=== PATIENT | female | born 1995 | race Hispanic/Latino ===

== ENCOUNTER 2018-11-13 19:13 | Emergency (ER) | payer OTHER ==
[2018-11-13 20:41] LABS: Absolute Lymphocytes (CBC) 4.4 K/uL (0.7-4.9); Absolute Monocytes 0.5 K/uL (0.1-1.3); Absolute Neutrophil 10.5 K/uL (1.8-8.0); Basophils % 0.6 % (0-1.3); Eosinophils % 1.5 % (0-4.4); Hematocrit 40.4 % (36.0-45.0); Lymphocytes % 27.9 % (15.3-44.8); MPV 8.5 fL (7.6-11.3); Monocytes % 3.3 % (3.3-12.3); RBC Red Blood Cell Count 5.16 M/uL (3.86-4.86)
--- NOTE | 2018-11-13 21:33 | EDPHYS ---
Physician Documentation [facility] Name: Joanie Schwartz Age: 23 yrs Sex: Female : 1995 Arrival Date: 11/13/2018 Time: 19:13 Bed 17 Private MD: ED Physician Juan Thomas HPI: 11/13 21:51 This 23 yrs old Female presents to ER via Ambulatory with complaints of gs Vaginal Bleeding. 21:51 Onset: The symptoms/episode began/occurred 6 month(s) ago, and became persistent. gs Modifying factors: The symptoms are alleviated by nothing, the symptoms are aggravated by nothing. Associated signs and symptoms: Pertinent negatives: cramping, fever. Severity of symptoms: At their worst the symptoms were moderate, in the emergency department the symptoms are unchanged. The patient has experienced similar episodes in the past, several times. The patient has not recently seen a physician. 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 - Social history:: Smoking status: Patient/guardian denies using tobacco. - Ebola Screening: : Patient negative for fever greater than or equal to 101.5 degrees Fahrenheit, and additional compatible Ebola Virus Disease symptoms. ROS: 21:51 All other systems are negative. gs Exam: 21:51 Head/Face: Normocephalic, atraumatic. Eyes: Pupils equal round and reactive to light, gs extra-ocular motions intact. Lids and lashes normal. Conjunctiva and sclera are non-icteric and not injected. Cornea within normal limits. Periorbital areas with no swelling, redness, or edema. ENT: Nares patent. No nasal discharge, no septal abnormalities noted. Tympanic membranes are normal and external auditory canals are clear. Oropharynx with no redness, swelling, or masses, exudates, or evidence of obstruction, uvula midline. Mucous membranes moist. Neck: Trachea midline, no thyromegaly or masses palpated, and no cervical lymphadenopathy. Supple, full range of motion without nuchal rigidity, or vertebral point tenderness. No Meningismus. Chest/axilla: Normal chest wall appearance and motion. Nontender with no deformity. No lesions are appreciated. Cardiovascular: Regular rate and rhythm with a normal S1 and S2. No gallops, murmurs, or rubs. Normal PMI, no JVD. No pulse deficits. Respiratory: Lungs have equal breath sounds bilaterally, clear to auscultation and percussion. No rales, rhonchi or wheezes noted. No increased work of breathing, no retractions or nasal flaring. Abdomen/GI: Soft, non-tender, with normal bowel sounds. No distension or tympany. No guarding or rebound. No evidence of tenderness throughout. Back: No spinal tenderness. No costovertebral tenderness. Full range of motion. Skin: Warm, dry with normal turgor. Normal color with no rashes, no lesions, and no evidence of cellulitis. MS/ Extremity: Pulses equal, no cyanosis. Neurovascular intact. Full, normal range of motion. Neuro: Awake and alert, GCS 15, oriented to person, place, time, and situation. Cranial nerves II-XII grossly intact. Motor strength 5/5 in all extremities. Sensory grossly intact. Cerebellar exam normal. Normal gait. 21:51 Constitutional: The patient appears alert, awake. Vital Signs: 19:23 BP 134 / 93; Pulse 81; Resp 16 S; Temp 97.5(TE); Pulse Ox 97% on R/A; Weight 89.81 kg jd3 (R); Height 5 ft. 3 in. (160.02 cm) (R); Pain 5/10; 21:57 BP 127 / 81; Pulse 76; Resp 17; Temp 97.2(O); Pulse Ox 99% on R/A; Pain 4/10; ed1 19:23 Body Mass Index 35.07 (89.81 kg, 160.02 cm) jd3 MDM: 19:40 Patient medically screened. gs 21:51 Differential diagnosis: dysmenorrhea, nonspecific abdominal pain. Data reviewed: vital gs signs, nurses notes. Counseling: I had a detailed discussion with the patient and/or guardian regarding: the historical points, exam findings, and any diagnostic results supporting the discharge/admit diagnosis, the presence of at least one elevated blood pressure reading (>120/80) during this emergency department visit, lab results, the need for outpatient follow up, an OB/Gyne specialist. Response to treatment: the patient's symptoms have mildly improved after treatment, and as a result, I will discharge patient. Special discussion: I have referred the patient to see his PCP for further evaluation of high blood pressure. 11/13 19:53 Order name: Urine Dipstick--Ancillary (enter results) [facility] 11/13 19:53 Order name: Urine --Ancillary (enter results) [facility] 11/13 19:53 Order name: Urine Dipstick-Ancillary [facility] 11/13 19:53 Order name: Urine --Ancillary [facility] 11/13 20:01 Order name: CBC with Diff; Complete Time: 21:29 Administered Medications: No medications were administered Disposition: 11/13/18 21:31 Discharged to Home. Impression: Other abnormal uterine and vaginal bleeding. - Condition is Stable. - Discharge Instructions: Dysfunctional Uterine Bleeding, Managing Your Hypertension. - Prescriptions for Provera 10 mg Oral tablet - take 1 tablet by ORAL route once daily; 5 tablet. - Medication Reconciliation Form, Thank You Letter, Antibiotic Education, Prescription Opioid Use form. - Follow up: Private Physician; When: 2 - 3 days; Reason: Re-evaluation by your physician. Signatures: Dispatcher [employer] Violeta Boateng RN RN ed1 Juan Thomas MD MD Ashvin Herrera RN RN jd3 Corrections: (The following items were deleted from the chart) 21:59 21:31 11/13/2018 21:31 Discharged to Home. Impression: Other abnormal uterine and ed1 vaginal bleeding. Condition is Stable. Forms are Medication Reconciliation Form, Thank You Letter, Antibiotic Education, Prescription Opioid Use. Follow up: Private Physician; When: 2 - 3 days; Reason: Re-evaluation by your physician. gs
--- NOTE | 2018-11-13 21:33 | ER ---
Nurse's Notes [facility] Name: Joanie Schwartz Age: 23 yrs Sex: Female : 1995 Arrival Date: 11/13/2018 Time: 19:13 Bed 17 Private MD: Diagnosis: Other abnormal uterine and vaginal bleeding Presentation: 11/13 19:21 Presenting complaint: Patient states: "I have had my period for about for about a month jd3 now. on average I am using 6 or so pads a day with passing clots.". Transition of care: patient was not received from another setting of care. Onset of symptoms was October 05, 2018. Risk Assessment: Do you want to hurt yourself or someone else? Patient reports no desire to harm self or others. Initial Sepsis Screen: Does the patient meet any 2 criteria? No. Patient's initial sepsis screen is negative. Does the patient have a suspected source of infection? No. Patient's initial sepsis screen is negative. Care prior to arrival: None. 19:21 Method Of Arrival: Ambulatory jd3 19:21 Acuity: CARMELITA 3 jd3 SERVICES REP: 19:23 LMP 10/05/2018 jd3 Historical: - Allergies: 19:23 No Known Allergies; jd3 - Home Meds: 19:23 None [Active]; jd3 - PMHx: 19:23 None; jd3 - PSHx: 19:23 ; bone marrow; jd3 - Immunization history:: Adult Immunizations up to date. - Social history:: Smoking status: Patient/guardian denies using tobacco. - Ebola Screening: : Patient negative for fever greater than or equal to 101.5 degrees Fahrenheit, and additional compatible Ebola Virus Disease symptoms. Screenin:52 Abuse screen: Denies threats or abuse. Denies injuries from another. Nutritional ed1 screening: No deficits noted. Tuberculosis screening: No symptoms or risk factors identified. Fall Risk None identified. Assessment: 19:52 General: Appears in no apparent distress. Behavior is calm, cooperative. Pain: ed1 Complains of pain in suprapubic area Pain does not radiate. Pain currently is 5 out of 10 on a pain scale. Quality of pain is described as crampy, Pain began over 1 month ago Is intermittent, lasting a few minutes. Neuro: Level of Consciousness is awake, alert, obeys commands, Oriented to person, place, time, situation. Cardiovascular: Denies chest pain, Heart tones S1 S2 present. Respiratory: Airway is patent Respiratory effort is even, unlabored, Respiratory pattern is regular, symmetrical, Breath sounds are clear bilaterally. Denies cough, shortness of breath. GI: Abdomen is non-distended, Bowel sounds present X 4 quads. Abd is soft and non tender X 4 quads. Patient currently denies diarrhea, nausea, vomiting. : Urine is cloudy, Reports vaginal bleeding that is with clots, moderate flow. EENT: No signs and/or symptoms were reported regarding the EENT system. Derm: Skin is intact, is healthy with good turgor, Skin is dry, Skin is normal, Skin temperature is warm. Musculoskeletal: Circulation, motion, and sensation intact. Range of motion: intact in all extremities. 21:57 Reassessment: Patient appears in no apparent distress at this time. Patient and/or ed1 family updated on plan of care and expected duration. Pain level reassessed. Patient is alert, oriented x 3, equal unlabored respirations, skin warm/dry/pink. Vital Signs: 19:23 BP 134 / 93; Pulse 81; Resp 16 S; Temp 97.5(TE); Pulse Ox 97% on R/A; Weight 89.81 kg jd3 (R); Height 5 ft. 3 in. (160.02 cm) (R); Pain 5/10; 21:57 BP 127 / 81; Pulse 76; Resp 17; Temp 97.2(O); Pulse Ox 99% on R/A; Pain 4/10; ed1 19:23 Body Mass Index 35.07 (89.81 kg, 160.02 cm) [facility] ED Course: 19:13 Patient arrived in ED. ds1 19:22 Triage completed. jd3 19:24 Arm band placed on. jd3 19:40 Juan Thomas MD is Attending Physician. 19:43 Violeta Bryant, FLAQUITA is Primary Nurse. ed1 19:52 Patient has correct armband on for positive identification. Bed in low position. Call ed1 light in reach. 19:52 Urine collected: clean catch specimen, blood tinged. ed1 19:54 Dr. Thomas at bedside. ed1 20:37 Initial lab(s) drawn, by me, sent to lab. ed1 21:04 Urine --Ancillary (enter results) Sent. ed1 21:04 Urine Dipstick--Ancillary (enter results) Sent. ed1 21:57 No provider procedures requiring assistance completed. Patient did not have IV access ed1 during this emergency room visit. Administered Medications: No medications were administered Outcome: 21:31 Discharge ordered by . 21:57 Discharged to home ambulatory. ed1 21:57 Condition: good 21:57 Discharge instructions given to patient, Instructed on discharge instructions, follow up and referral plans. medication usage, Demonstrated understanding of instructions, follow-up care, medications, Prescriptions given X 1. 21:59 Patient left the ED. ed1 Signatures: Rut Zepeda ds1 Violeta Bryant RN RN ed1 Juan Thomas MD MD gs Davies, Jonathon, RN RN jd3
[2018-11-13 22:35] LABS: Urine Blood 2+ (NEG); Urine Glucose NEGATIVE (NEG); Urine Protein 2+ (NEG); Urine Specific Gravity >1.030 (1.005-1.030); Urine pH 5.5 (5.0-7.0)
== END 2018-11-13 21:59 | disposition home or self-care (01) ==
LOC: ER 19:13
DX: N93.9 Abnormal uterine and vaginal bleeding, unspecified (principal)
CPT/HCPCS: 36415; 81003; 81025; 85025; 99283

== ENCOUNTER 2020-01-10 14:54 | Emergency (ER) | payer OTHER, SELFPAY ==
[2020-01-10 16:29] LABS: Absolute Lymphocytes (CBC) 3.1 K/uL (0.7-4.9); Basophils % 0.5 % (0-1.3); Hematocrit 35.5 % (36.0-45.0); Lymphocytes % 20.5 % (15.3-44.8); MPV 8.5 fL (7.6-11.3); RBC Red Blood Cell Count 5.12 M/uL (3.86-4.86)
--- NOTE | 2020-01-10 16:38 | RAD REPORT ---
EXAM DESCRIPTION: [place] Single View01/10/2020 4:29 pm CLINICAL HISTORY: Chest pain COMPARISON: none FINDINGS: The lungs appear clear of acute infiltrate. The heart is normal size IMPRESSION: No acute abnormalities displayed
[2020-01-10 16:49] LABS: ALT/SGPT 42 U/L (12-78); AST/SGOT 20 U/L (15-37); Albumin 3.5 g/dL (3.4-5.0); Alkaline Phosphatase 100 U/L (45-117); BUN Blood Urea Nitrogen 10 mg/dL (7-18); Bicarbonate 24 mmol/L (21-32); Bilirubin Direct < 0.1 mg/dL (0-0.2); Bilirubin Total 0.1 mg/dL (0.2-1.0); Glucose Level 148 mg/dL (74-106); Lipase 133 U/L (73-393); Magnesium 2.1 mg/dL (1.8-2.4); NT PRO-BNP 14 pg/mL (<125); Potassium 3.4 mmol/L (3.5-5.1); Protein, Total 7.6 g/dL (6.4-8.2); Sodium Level 141 mmol/L (136-145); Troponin (Emerg Dept Use Only) < 0.02 ng/mL (0.0-0.045)
[2020-01-10 17:02] LABS: Urine Blood 2+ (NEG); Urine Glucose NEGATIVE (NEG); Urine Protein TRACE (NEG)
--- NOTE | 2020-01-10 17:08 | ER ---
Nurse's Notes [facility] Name: Joanie Schwartz Age: 24 yrs Sex: Female : 1995 Arrival Date: 01/10/2020 Time: 14:58 Bed 17 Private MD: Diagnosis: Chest pain, unspecified;Hypokalemia;Elevated white blood cell count Presentation: 01/09 14:59 Chief complaint: Patient states: left sided chest pain since Mon. Last a few seconds sv each time. Risk Assessment: Do you want to hurt yourself or someone else? Patient reports no desire to harm self or others. Onset of symptoms was January 08, 2020. 14:59 Method Of Arrival: Ambulatory sv 14:59 Acuity: CARMELITA 3 sv 15:00 Coronavirus screen: Proceed with normal triage. Patient denies a cough. Patient denies sv shortness of breath or difficulty breathing. Patient denies measured and/or subjective temperature greater than 100.4F prior to today's visit. Patient denies travel on a cruise ship or to a country the [facility] currently lists as an affected area. Patient denies contact with known and/or suspected case of COVID-19. Ebola Screen: No symptoms or risks identified at this time. 15:02 Initial Sepsis Screen: Does the patient meet any 2 criteria? HR > 90 bpm. No. Patient's sv initial sepsis screen is negative. Does the patient have a suspected source of infection? No. Patient's initial sepsis screen is negative. Triage Assessment: 15:01 General: Appears in no apparent distress. comfortable, Behavior is cooperative, sv appropriate for age, anxious. Pain: Denies pain. Neuro: Level of Consciousness is awake, alert, obeys commands, Gait is steady. Respiratory: Respiratory effort is even, unlabored. Historical: - Allergies: 15:00 No Known Allergies; sv - PMHx: 15:00 None; sv - PSHx: 15:00 ; bone marrow bx; sv - Immunization history:: Adult Immunizations. - Social history:: Smoking status: Patient denies any tobacco usage or history of. Screenin:23 Abuse screen: Denies threats or abuse. Nutritional screening: No deficits noted. tw2 Tuberculosis screening: No symptoms or risk factors identified. Fall Risk None identified. Assessment: 15:30 General: Appears in no apparent distress. comfortable, Behavior is calm, cooperative, em appropriate for age, Denies fever. Pain: Complains of pain in anterior aspect of left upper chest Pain does not radiate. Pain began 2-3 days ago. Neuro: Level of Consciousness is awake, alert, obeys commands, Oriented to person, place, time, situation, Appropriate for age. Cardiovascular: Reports chest pain, Denies nausea, shortness of breath, Capillary refill < 3 seconds Patient's skin is warm and dry. Rhythm is sinus rhythm. Respiratory: Airway is patent Respiratory effort is even, unlabored, Respiratory pattern is regular, symmetrical, Denies cough, shortness of breath. GI: Patient currently denies nausea, vomiting. : Denies burning with urination. Derm: Skin is intact, is healthy with good turgor, Skin is pink, warm \T\ dry. Musculoskeletal: Capillary refill < 3 seconds, Range of motion: intact in all extremities. 16:30 Reassessment: Patient appears in no apparent distress at this time. Patient and/or em family updated on plan of care and expected duration. Pain level reassessed. Patient is alert, oriented x 3, equal unlabored respirations, skin warm/dry/pink. 18:22 Reassessment: Patient appears in no apparent distress at this time. No changes from tw2 previously documented assessment. Patient and/or family updated on plan of care and expected duration. Pain level reassessed. Patient is alert, oriented x 3, equal unlabored respirations, skin warm/dry/pink. Patient states feeling better. Patient states symptoms have improved. Vital Signs: 15:00 BP 129 / 84; Pulse 92; Resp 18; Temp 98.9; Pulse Ox 100% ; Weight 9.98 kg; Height 5 ft. sv 3 in. (160.02 cm); Pain 0/10; 18:22 BP 122 / 77; Pulse 87; Resp 17; Pulse Ox 98% ; Pain 0/10; tw2 15:00 Body Mass Index 3.90 (9.98 kg, 160.02 cm) sv ED Course: 14:58 Patient arrived in ED. mr 14:59 Arm band placed on. sv 15:00 Triage completed. sv 15:04 Bed in low position. Call light in reach. order builder on. Pulse ox on. NIBP on. tw2 Warm blanket given. 15:05 Fransico Wong MD is Attending Physician. [facility] 15:06 Jim Watts, RN is Primary Nurse. em 16:17 Initial lab(s) drawn, by me, sent to lab. Urine collected: clean catch specimen, dh3 cloudy. Inserted saline lock: 20 gauge in right antecubital area, using aseptic technique. Blood collected. 16:30 XRAY Chest (1 view) In Process Unspecified. EDMS 17:07 Bartolo Jorgensen MD is Referral Physician. jaylan 18:24 No provider procedures requiring assistance completed. IV discontinued, intact, tw2 bleeding controlled, No redness/swelling at site. Pressure dressing applied. Patient maintains SpO2 saturation greater than 95% on room air. Administered Medications: 17:20 Drug: NS 0.9% 500 ml Route: IV; Rate: bolus; Site: right antecubital; em 18:14 Follow up: Response: No adverse reaction; IV Status: Completed infusion; IV Intake: tw2 500ml 17:20 Drug: Aspirin 162 mg Route: PO; em 17:37 Follow up: Response: No adverse reaction tw2 17:43 Drug: Zithromax 500 mg Route: PO; tw2 18:12 Follow up: Response: No adverse reaction tw2 Intake: 18:14 IV: 500ml; Total: 500ml. tw2 Outcome: 17:08 Discharge ordered by . jaylan 18:22 Discharged to home ambulatory. tw2 18:22 Condition: stable 18:22 Discharge instructions given to patient, Instructed on discharge instructions, follow up and referral plans. medication usage, Demonstrated understanding of instructions, follow-up care, medications, Prescriptions given X 2. 18:24 Patient left the ED. tw2 Signatures: Dispatcher [employer] Genoveva Yousif, RN RN sv Fransico Wong MD MD cha Rivera, Mary mr Jim Watts, FLAQUITA SAMS Shalini Gonzalez RN RN tw2 Lucía Alvares 3 Corrections: (The following items were deleted from the chart) 15:02 15:00 9.98 kg; Height 5 ft. 3 in.; BMI: 3.90; sv sv 15:03 15:00 Pulse 92bpm; Resp 18bpm; Pulse Ox 100%; Temp 98.9F; 9.98 kg; Height 5 ft. 3 in.; sv BMI: 3.90; Pain 0/10; sv
--- NOTE | 2020-01-10 17:08 | EDPHYS ---
Physician Documentation [facility] Name: Joanie Schwartz Age: 24 yrs Sex: Female : 1995 Arrival Date: 01/10/2020 Time: 14:58 Bed 17 Private MD: ED Physician Fransico Wong HPI: 01/09 16:08 This 24 yrs old Female presents to ER via Ambulatory with complaints of Chest jaylan Pain. 16:08 The patient or guardian reports chest pain that is located primarily in the substernal jaylan area. The pain does not radiate. Associated signs and symptoms: The patient has no apparent associated signs or symptoms. The chest pain is described as sharp. Duration: The patient or guardian reports multiple episodes, with no pattern. Modifying factors: The symptoms are alleviated by nothing. the symptoms are aggravated by nothing. Severity of pain: At its worst the pain was mild in the emergency department the pain is unchanged. The patient has not experienced similar symptoms in the past. Historical: - Allergies: 15:00 No Known Allergies; sv - PMHx: 15:00 None; sv - PSHx: 15:00 ; bone marrow bx; sv - Immunization history:: Adult Immunizations. - Social history:: Smoking status: Patient denies any tobacco usage or history of. ROS: 16:10 Constitutional: Negative for fever, chills, and weight loss, Eyes: Negative for injury, jaylan pain, redness, and discharge, ENT: Negative for injury, pain, and discharge, Neck: Negative for injury, pain, and swelling, Respiratory: Negative for shortness of breath, cough, wheezing, and pleuritic chest pain, Abdomen/GI: Negative for abdominal pain, nausea, vomiting, diarrhea, and constipation, Back: Negative for injury and pain, : Negative for injury, bleeding, discharge, and swelling, MS/Extremity: Negative for injury and deformity, Skin: Negative for injury, rash, and discoloration, Neuro: Negative for headache, weakness, numbness, tingling, and seizure, Psych: Negative for depression, anxiety, suicide ideation, homicidal ideation, and hallucinations, Allergy/Immunology: Negative for hives, rash, and allergies, Endocrine: Negative for neck swelling, polydipsia, polyuria, polyphagia, and marked weight changes, Hematologic/Lymphatic: Negative for swollen nodes, abnormal bleeding, and unusual bruising. 16:10 Cardiovascular: Positive for chest pain. 16:10 MS/extremity: Negative for swelling, tenderness. Exam: 16:10 Constitutional: This is a well developed, well nourished patient who is awake, alert, jaylan and in no acute distress. Head/Face: Normocephalic, atraumatic. Eyes: Pupils equal round and reactive to light, extra-ocular motions intact. Lids and lashes normal. Conjunctiva and sclera are non-icteric and not injected. Cornea within normal limits. Periorbital areas with no swelling, redness, or edema. ENT: Nares patent. No nasal discharge, no septal abnormalities noted. Tympanic membranes are normal and external auditory canals are clear. Oropharynx with no redness, swelling, or masses, exudates, or evidence of obstruction, uvula midline. Mucous membranes moist. Neck: Trachea midline, no thyromegaly or masses palpated, and no cervical lymphadenopathy. Supple, full range of motion without nuchal rigidity, or vertebral point tenderness. No Meningismus. Chest/axilla: Normal chest wall appearance and motion. Nontender with no deformity. No lesions are appreciated. Cardiovascular: Regular rate and rhythm with a normal S1 and S2. No gallops, murmurs, or rubs. Normal PMI, no JVD. No pulse deficits. Respiratory: Lungs have equal breath sounds bilaterally, clear to auscultation and percussion. No rales, rhonchi or wheezes noted. No increased work of breathing, no retractions or nasal flaring. Abdomen/GI: Soft, non-tender, with normal bowel sounds. No distension or tympany. No guarding or rebound. No evidence of tenderness throughout. Back: No spinal tenderness. No costovertebral tenderness. Full range of motion. Skin: Warm, dry with normal turgor. Normal color with no rashes, no lesions, and no evidence of cellulitis. MS/ Extremity: Pulses equal, no cyanosis. Neurovascular intact. Full, normal range of motion. Neuro: Awake and alert, GCS 15, oriented to person, place, time, and situation. Cranial nerves II-XII grossly intact. Motor strength 5/5 in all extremities. Sensory grossly intact. Cerebellar exam normal. Normal gait. Psych: Awake, alert, with orientation to person, place and time. Behavior, mood, and affect are within normal limits. 16:10 Musculoskeletal/extremity: DVT Exam: No signs of deep vein thrombosis. no pain, no swelling, no tenderness, negative Homans' sign noted on exam, no appreciated bluish discoloration, no erythema, no increased warmth. 16:11 Skin: Exam negative for rash, cellulitis, is not appreciated, induration, is not jaylan appreciated, injury, is not appreciated, no rash present. Vital Signs: 15:00 BP 129 / 84; Pulse 92; Resp 18; Temp 98.9; Pulse Ox 100% ; Weight 9.98 kg; Height 5 ft. sv 3 in. (160.02 cm); Pain 0/10; 18:22 BP 122 / 77; Pulse 87; Resp 17; Pulse Ox 98% ; Pain 0/10; tw2 15:00 Body Mass Index 3.90 (9.98 kg, 160.02 cm) sv MDM: 15:05 Patient medically screened. [facility] 16:12 Data reviewed: vital signs, nurses notes, lab test result(s), EKG, radiologic studies, [facility] plain films. 16:12 Differential diagnosis: acute myocardial infarction, acute pericarditis, anxiety, jaylan coronary artery disease esophagitis, gastritis, hiatal hernia, pleurisy, pulmonary embolus, unstable angina. HEART Score: History: Slightly Suspicious (0), ECG: Normal (0), Age: < or = 45 years (0), Risk Factors: No Risk Factors Known (0), Troponin: < or = 1 x Normal Limit (0), Total Score = 0. The patient's deep vein thrombosis risk score was calculated as follows: Total Score: 0. This patient was found to be at low risk for a deep vein thrombosis by using the Well's assessment criteria. BHUPENDRA Risk Score: TOTAL SCORE = 0. 18:01 ED course: no dysuria, no frequency, no urgency, will not treat urine. [facility] 01/09 16:08 Order name: Basic Metabolic Panel; Complete Time: 17:02 [facility] 01/09 16:08 Order name: CBC with Diff [facility] 01/09 16:08 Order name: LFT's; Complete Time: 17:02 [facility] 01/09 16:08 Order name: Magnesium; Complete Time: 17:02 [facility] 01/09 16:08 Order name: NT PRO-BNP; Complete Time: 17:02 [facility] 01/09 16:08 Order name: Troponin (emerg Dept Use Only); Complete Time: 17:02 [facility] 01/09 16:08 Order name: XRAY Chest (1 view); Complete Time: 17:02 [facility] 01/09 16:08 Order name: D-Dimer; Complete Time: 17:02 [facility] 01/09 16:08 Order name: Lipase; Complete Time: 17:02 [facility] 01/09 16:25 Order name: Urine Microscopic Only; Complete Time: 18:00 dh3 01/09 16:37 Order name: Urine Dipstick--Ancillary (enter results); Complete Time: 17:02 eb 01/09 16:37 Order name: Urine --Ancillary (enter results); Complete Time: 17:02 01/09 17:25 Order name: Urine Culture EDMS 01/09 16:08 Order name: EKG; Complete Time: 16:09 [facility] 01/09 16:08 Order name: Cardiac monitoring; Complete Time: 16:26 [facility] 01/09 16:08 Order name: EKG - Nurse/Tech; Complete Time: 16:26 [facility] 01/09 16:08 Order name: IV Saline Lock; Complete Time: 16:26 [facility] 01/09 16:08 Order name: Labs collected and sent; Complete Time: 16:26 [facility] 01/09 16:08 Order name: O2 Per Protocol; Complete Time: 16:26 [facility] 01/09 16:08 Order name: O2 Sat Monitoring; Complete Time: 16:26 [facility] 01/09 16:08 Order name: Urine Dipstick-Ancillary (obtain specimen); Complete Time: 16:26 [facility] 01/09 16:08 Order name: Urine Test (obtain specimen); Complete Time: 16:26 [facility] 01/09 17:05 Order name: PO challenge: juice x 1; Complete Time: 17:17 [facility] Administered Medications: 17:20 Drug: NS 0.9% 500 ml Route: IV; Rate: bolus; Site: right antecubital; em 18:14 Follow up: Response: No adverse reaction; IV Status: Completed infusion; IV Intake: tw2 500ml 17:20 Drug: Aspirin 162 mg Route: PO; em 17:37 Follow up: Response: No adverse reaction tw2 17:43 Drug: Zithromax 500 mg Route: PO; tw2 18:12 Follow up: Response: No adverse reaction tw2 Disposition: 01/10/20 17:08 Discharged to Home. Impression: Chest pain, unspecified, Hypokalemia, Elevated white blood cell count. - Condition is Stable. - Discharge Instructions: Nonspecific Chest Pain, Potassium Content of Foods, Nonspecific Chest Pain, [id number], Aspirin and Your Heart, Hypokalemia. - Prescriptions for Motrin IB 200 mg Oral Tablet - take 2 tablet by ORAL route every 6 hours As needed as needed with food; 30 tablet. Zithromax 500 mg Oral Tablet - take 1 tablet by ORAL route once daily for 4 days; 4 tablet. - Medication Reconciliation Form, Thank You Letter, Antibiotic Education, Prescription Opioid Use form. - Follow up: Private Physician; When: 2 - 3 days; Reason: Recheck today's complaints, Continuance of care, Re-evaluation by your physician. Follow up: Bartolo Jorgensen MD; When: 2 - 3 days; Reason: Recheck today's complaints, Continuance of care, Re-evaluation by your physician. - Problem is new. - Symptoms have improved. Signatures: Dispatcher [employer] Genoveva Yousif RN RN Fransico Koo MD MD cha Munoz, Edgar, RN RN em Wise, Tara, RN RN tw2 Corrections: (The following items were deleted from the chart) 18:24 17:08 01/10/2020 17:08 Discharged to Home. Impression: Chest pain, unspecified; tw2 Hypokalemia; Elevated white blood cell count. Condition is Stable. Forms are Medication Reconciliation Form, Thank You Letter, Antibiotic Education, Prescription Opioid Use. Follow up: Private Physician; When: 2 - 3 days; Reason: Recheck today's complaints, Continuance of care, Re-evaluation by your physician. Follow up: Bartolo Jorgensen; When: 2 - 3 days; Reason: Recheck today's complaints, Continuance of care, Re-evaluation by your physician. Problem is new. Symptoms have improved. jaylan
[2020-01-10 17:20] LABS: Urine Bacteria 20-50 /HPF (<20); Urine Coarse Granular Casts 0-5 /LPF (NONE SEEN); Urine Culture Reflex Order REFLEXED; Urine Mucus 2+ /HPF (NONE SEEN)
[2020-01-10] MEDS ORDERED: ASPIRIN 81 MG CHEWABLE TABLET ONE (17:21)
[2020-01-10] MEDS ORDERED: NA CHLORIDE 0.9% 500 ML ONE (17:22)
[2020-01-10] MEDS ORDERED: AZITHROMYCIN 250 MG TAB ONE (17:47)
[2020-01-10 18:31] VITALS: TEMP 98.9
[2020-01-10 18:32] VITALS: BP 122/77; O2SAT 98
[2020-01-10 20:14] LABS: Blood Morphology Comment NOTED (NOT SEEN); Hypochromasia 1+; Platelet Estimate ADEQ; Urine White Blood Cell Casts OK
--- NOTE | 2020-01-11 12:19 | EKG ---
Test Date: 2020-01-10 Test Time: 15:20:32 [employer] Supervisor: PETER MEASUREMENT RESULTS: Intervals: Rate: 80 IN: 142 QRSD: 100 QT: 372 QTc: 429 [place]: P: 2 IN: 142 QRS: 7 T: -3 INTERPRETIVE STATEMENTS: Normal sinus rhythm Normal ECG No previous ECG available for comparison Electronically Signed On 01-11-20 12:17:48 CDT by Bartolo Jorgensen
== END 2020-01-10 18:24 | disposition home or self-care (01) ==
LOC: ER 14:54
DX: E87.6 Hypokalemia (principal); D72.829 Elevated white blood cell count, unspecified
CPT/HCPCS: 36415; 71045; 80048; 80076; 81003; 81015; 81025; 83690; 83735; 83880; 84484; 85025; 85379; 87086; 87088; 93005; 96360; 99285; J7040